=== PATIENT | male | born 1950 | race Caucasian/White ===

== ENCOUNTER → 2018-01-06 07:01 | Outpatient (CLI) | payer OTHER, SELFPAY ==
[2018-01-06 08:11] LABS: Add Manual Diff / Slide Review NO; Eosinophils Percent Auto 3.6 % (2-4); Hematocrit 43.6 % (41-53); Hemoglobin 14.7 g/dL (13.5-17.5); Lymphocytes Percent Auto 37.5 % (25-40); Mean Corpuscular HGB Conc 33.6 % (30-36); Mean Corpuscular Volume 92.3 fL (80-100); Monocytes Percent Auto 9.8 % (3-14); Neutrophils Absolute Auto 2700 /uL (3000-5900); Neutrophils Percent Auto 48.1 % (50-75); Platelet Count 251 X10^3/uL (150-400); Red Blood Cell Count 4.72 X10^6/uL (4.5-5.9); Red Cell Distribution Width 13.1 % (11.6-14.8); White Blood Cell Count 5.7 X10^3/uL (4.5-11.0)
[2018-01-06 08:20] LABS: Alanine Aminotransferase 29 IU/L (21-72); Albumin 4.2 g/dL (3.5-5.0); Albumin Globulin Ratio 1.5 (1.0-2.8); Alkaline Phosphatase 54 U/L (38-126); Aspartate Aminotransferase 25 IU/L (17-59); BUN Creatinine Ratio 13.3 (6-22); Bilirubin Total 1.4 mg/dL (0.2-1.3); Blood Urea Nitrogen 16 mg/dL (9-20); Calcium 9.4 mg/dL (8.4-10.2); Carbon Dioxide 32 mmol/L (22-32); Chloride 101 mmol/L (98-107); Cholesterol 193 mg/dL (140-199); Estimated Glomerular Filt Rate > 60.0 mL/min (>60); Globulin 2.8 g/dL (1.7-4.1); Glucose 99 mg/dL (80-110); HDL Cholesterol 74 mg/dL (40-60); HEMOLYSIS < 15 (0-50); LDL Cholesterol Calculated 108 mg/dL (<100); Potassium 4.3 mmol/L (3.4-5.1); Sodium 140 mmol/L (137-145); Triglycerides 54 mg/dL (35-150)
[2018-01-06 08:47] LABS: Thyroid Stimulating Hormone 3.41 uIU/mL (0.47-4.68)
[2018-01-06 09:08] LABS: Hep C Virus Ab w/Reflex Quant NEGATIVE s/c (NEGATIVE)
[2018-01-06 13:43] LABS: Prostate Specific Antigen Scrn 0.917 ng/mL (0.1-4.0)
[2018-01-09 15:05] LABS: 1 25 Dihydroxy Vitamin D 52 pg/mL (18-72)
== END ==
PROVIDERS: PCP Internal Medicine; Visit Provider Internal Medicine
DX: Z00.00 Encounter for general adult medical examination without abnormal findings (principal)
CPT/HCPCS: 36415; 80053; 80061; 82652; 84153; 84443; 85025; 86803; G0103

== ENCOUNTER → 2018-12-01 08:58 | Outpatient (CLI) | payer OTHER, SELFPAY ==
--- NOTE | 2018-12-01 | DI.US.S_ITS ---
PROCEDURE: US ARTERIAL DUPLEX LE BI INDICATIONS: PERIPHERAL VASCULAR DISEASE TECHNIQUE: Color and pulse Doppler interrogation was performed of both lower extremity arterial systems, with image documentation. COMPARISON: None. FINDINGS: Right lower extremity: Common femoral artery: 107 cm/sec, with triphasic flow. Deep femoral artery: 79 cm/sec, with triphasic flow. Proximal superficial femoral artery: 92 cm/sec, with triphasic flow. Mid superficial femoral artery: 98 cm/sec, with triphasic flow. Distal superficial femoral artery: 66 cm/sec, with triphasic flow. Popliteal artery: 85 cm/sec, with triphasic flow. Posterior tibial artery: 82 cm/sec, with triphasic flow. Anterior tibial artery/dorsalis pedis: 53 cm/sec, with triphasic flow. Andrade-scale imaging description: Mild atheromatous plaque. No hemodynamically significant stenosis. Left lower extremity: Common femoral artery: 93 cm/sec, with triphasic flow. Deep femoral artery: 60 cm/sec, with triphasic flow. Proximal superficial femoral artery: 78 cm/sec, with triphasic flow. Mid superficial femoral artery: 86 cm/sec, with triphasic flow. Distal superficial femoral artery: 85 cm/sec, with triphasic flow. Popliteal artery: 46 cm/sec, with triphasic flow. Posterior tibial artery: 75 cm/sec, with triphasic flow. Anterior tibial artery/dorsalis pedis: 41 cm/sec, with triphasic flow. Andrade-scale imaging description: Mild atheromatous plaque without hemodynamically significant stenosis. IMPRESSION: 1. No hemodynamically significant stenosis of the bilateral lower extremities. Dictated by: Cassandra Gutierrez M.D. on 12/01/2018 at 15:24 Approved by: Cassandra Gutierrez M.D. on 12/01/2018 at 15:37
== END ==
PROVIDERS: PCP Internal Medicine; Visit Provider Internal Medicine
DX: I73.9 Peripheral vascular disease, unspecified (principal)
CPT/HCPCS: 93925

== ENCOUNTER → 2019-03-23 07:35 | Outpatient (CLI) | payer OTHER, SELFPAY ==
[2019-03-23 08:57] LABS: Add Manual Diff / Slide Review NO; Basophils Absolute Auto 0 /uL (0-100); Basophils Percent Auto 0.5 % (0-2); Eosinophils Absolute Auto 200 /uL (0-450); Eosinophils Percent Auto 2.3 % (2-4); Hematocrit 42.9 % (41-53); Hemoglobin 14.7 g/dL (13.5-17.5); Lymphocytes Absolute Auto 1100 /uL (1100-4500); Lymphocytes Percent Auto 14.4 % (25-40); Mean Corpuscular HGB Conc 34.3 % (30-36); Mean Corpuscular Hemoglobin 31.4 PG (26-34); Mean Corpuscular Volume 91.4 fL (80-100); Monocytes Absolute Auto 500 /uL (0-900); Monocytes Percent Auto 7.2 % (3-14); Neutrophils Absolute Auto 5700 /uL (1500-7000); Neutrophils Percent Auto 75.6 % (50-75); Platelet Count 239 X10^3/uL (150-400); Red Blood Cell Count 4.69 X10^6/uL (4.5-5.9); Red Cell Distribution Width 12.8 % (11.6-14.8); White Blood Cell Count 7.6 X10^3/uL (4.5-11.0)
[2019-03-23 08:59] LABS: Alanine Aminotransferase 22 IU/L (<50); Albumin 4.4 g/dL (3.5-5.0); Albumin Globulin Ratio 1.6 (1.0-2.8); Alkaline Phosphatase 60 U/L (38-126); Aspartate Aminotransferase 28 IU/L (17-59); BUN Creatinine Ratio 14.6 (6-22); Bilirubin Total 2.1 mg/dL (0.2-1.3); Blood Urea Nitrogen 19 mg/dL (9-20); Calcium 9.2 mg/dL (8.4-10.2); Carbon Dioxide 31 mmol/L (22-32); Chloride 99 mmol/L (98-107); Cholesterol 198 mg/dL (140-199); Estimated Glomerular Filt Rate 54.6 mL/min (>60); Globulin 2.8 g/dL (1.7-4.1); Glucose 112 mg/dL (80-110); HDL Cholesterol 62 mg/dL (40-60); HEMOLYSIS < 15 (0-50); LDL Cholesterol Calculated 122 mg/dL (<100); Potassium 4.4 mmol/L (3.4-5.1); Sodium 138 mmol/L (137-145); Total Protein 7.2 g/dL (6.3-8.2); Triglycerides 72 mg/dL (35-150)
[2019-03-23 09:28] LABS: Prostate Specific Antigen Scrn 0.934 ng/mL (0.1-4.0)
[2019-03-23 14:26] LABS: Vitamin D 25 Hydroxy (D3) 31.8 ng/mL (30.0-100.0)
== END ==
PROVIDERS: PCP Internal Medicine; Visit Provider Internal Medicine
DX: I73.9 Peripheral vascular disease, unspecified (principal); M15.0 Primary generalized (osteo)arthritis; E55.9 Vitamin D deficiency, unspecified; N40.1 Benign prostatic hyperplasia with lower urinary tract symptoms; Z12.5 Encounter for screening for malignant neoplasm of prostate
CPT/HCPCS: 36415; 80053; 80061; 82306; 85025; G0103

== ENCOUNTER → 2019-04-10 07:53 | Outpatient (CLI) | payer OTHER, SELFPAY ==
--- NOTE | 2019-04-10 | DI.US.S_ITS ---
PROCEDURE: US ABDOMEN COMPLETE INDICATIONS: UNSPECIFIED JAUNDICE TECHNIQUE: Real-time scanning was performed of the abdominal and retroperitoneal organs, with image documentation. COMPARISON: None. FINDINGS: Liver: Liver is normal in size and homogeneous in echotexture except for presence of 2 cysts located within the right and left hepatic lobes respectively. On the left the cyst measures 7 x 7 x 11 mm and on the right the cyst near the dome measures 6 x 5 x 6 mm.. Gallbladder: Normal. Biliary ducts: Intrahepatic bile ducts are non-dilated. Extrahepatic bile duct caliber measures 7.0 mm. Normal is 6-7 mm or less in diameter, or 10 mm or less post-cholecystectomy. Pancreas: Visualized portions of the pancreas are sonographically normal. Spleen: Spleen is normal in size and homogeneous in echotexture. Kidneys: Kidneys are normal in size and echotexture. Right kidney measures 10.7 cm long; left kidney measures 10.6 cm long. No hydronephrosis or nephrolithiasis. No solid masses. Aorta: Visualized aorta is normal in caliber at less than 3 cm. Iliacs: Proximal common iliac arteries are normal in caliber at less than 2.5 cm. IVC: Intrahepatic inferior vena cava is patent. Miscellaneous: No free abdominal fluid. IMPRESSION: Source of abnormal liver function tests is not found. Incidental note made of 2 small cysts within the liver. No biliary distention is found. Dictated by: Isaak So M.D. on 04/10/2019 at 12:58 Approved by: Isaak So M.D. on 04/10/2019 at 13:00
[2019-04-10 09:30] LABS: Add Manual Diff / Slide Review NO; Basophils Absolute Auto 0 /uL (0-100); Basophils Percent Auto 0.5 % (0-2); Eosinophils Absolute Auto 300 /uL (0-450); Eosinophils Percent Auto 4.5 % (2-4); Hematocrit 43.4 % (41-53); Hemoglobin 14.8 g/dL (13.5-17.5); Lymphocytes Absolute Auto 2700 /uL (1100-4500); Lymphocytes Percent Auto 42.6 % (25-40); Mean Corpuscular HGB Conc 34.1 % (30-36); Mean Corpuscular Hemoglobin 31.5 PG (26-34); Mean Corpuscular Volume 92.2 fL (80-100); Monocytes Absolute Auto 500 /uL (0-900); Monocytes Percent Auto 8.4 % (3-14); Neutrophils Absolute Auto 2800 /uL (1500-7000); Platelet Count 242 X10^3/uL (150-400); Red Blood Cell Count 4.71 X10^6/uL (4.5-5.9); Red Cell Distribution Width 13.3 % (11.6-14.8); White Blood Cell Count 6.3 X10^3/uL (4.5-11.0)
[2019-04-10 09:40] LABS: Alanine Aminotransferase 22 IU/L (<50); Albumin 4.3 g/dL (3.5-5.0); Albumin Globulin Ratio 1.5 (1.0-2.8); Alkaline Phosphatase 53 U/L (38-126); Aspartate Aminotransferase 30 IU/L (17-59); BUN Creatinine Ratio 16.9 (6-22); Bilirubin Total 1.3 mg/dL (0.2-1.3); Bilirubin Unconjugated 1.2 mg/dL (0.0-1.1); Blood Urea Nitrogen 22 mg/dL (9-20); Calcium 9.3 mg/dL (8.4-10.2); Carbon Dioxide 33 mmol/L (22-32); Chloride 103 mmol/L (98-107); Cholesterol 209 mg/dL (140-199); Estimated Glomerular Filt Rate 54.6 mL/min (>60); Globulin 2.8 g/dL (1.7-4.1); Glucose 98 mg/dL (80-110); HDL Cholesterol 66 mg/dL (40-60); HEMOLYSIS < 15 (0-50); LDL Cholesterol Calculated 133 mg/dL (<100); Potassium 4.6 mmol/L (3.4-5.1); Sodium 141 mmol/L (137-145); Total Protein 7.1 g/dL (6.3-8.2); Triglycerides 50 mg/dL (35-150)
[2019-04-10 10:10] LABS: Prostate Specific Antigen Scrn 1.02 ng/mL (0.1-4.0)
[2019-04-10 10:47] LABS: Vitamin D 25 Hydroxy (D3) 36.7 ng/mL (30.0-100.0)
== END ==
PROVIDERS: PCP Internal Medicine; Visit Provider Internal Medicine
DX: R17 Unspecified jaundice (principal); I73.9 Peripheral vascular disease, unspecified; M15.0 Primary generalized (osteo)arthritis; E55.9 Vitamin D deficiency, unspecified; Z12.5 Encounter for screening for malignant neoplasm of prostate; N40.1 Benign prostatic hyperplasia with lower urinary tract symptoms
CPT/HCPCS: 36415; 76700; 80053; 80061; 80076; 82306; 85025; G0103

== ENCOUNTER → 2019-07-06 10:04 | Outpatient (CLI) | payer OTHER, SELFPAY ==
--- NOTE | 2019-07-06 | DI.RAD.S_ITS ---
PROCEDURE: XR CHEST 2V INDICATIONS: COUGH TECHNIQUE: 2 views of the chest were acquired. COMPARISON: None. FINDINGS: Surgical changes and devices: None. Lungs and pleura: Lungs are clear. No pleural effusions or pneumothorax. Mediastinum: Mediastinal contours are normal. Heart size is normal. Bones and chest wall: No suspicious bony abnormalities. Soft tissues appear unremarkable. IMPRESSION: No acute cardiopulmonary disease. Dictated by: Michelle Christiansen M.D. on 07/06/2019 at 10:36 Approved by: Michelle Christiansen M.D. on 07/06/2019 at 10:37
== END ==
PROVIDERS: PCP Internal Medicine; Referring Provider Student in an Organized Health Care Education/Training Program; Visit Provider Student in an Organized Health Care Education/Training Program
DX: R05 Cough (principal)
CPT/HCPCS: 71046

== ENCOUNTER → 2019-10-08 13:28 | Outpatient (CLI) | payer OTHER, SELFPAY ==
--- NOTE | 2019-10-08 | DI.RAD.S_ITS ---
PROCEDURE: XR CHEST 2V INDICATIONS: cough TECHNIQUE: 2 views of the chest were acquired. COMPARISON: [facility], CR, XR CHEST 2V, 07/06/2019, 10:05. FINDINGS: Surgical changes and devices: None. Lungs and pleura: Lungs are clear. No pleural effusions or pneumothorax. Mediastinum: Mediastinal contours are normal. Heart size is normal. Bones and chest wall: No suspicious bony abnormalities. Soft tissues appear unremarkable. IMPRESSION: Normal for age, source of current cough symptoms is not seen. Dictated by: Isaak So M.D. on 10/08/2019 at 14:24 Approved by: Isaak So M.D. on 10/08/2019 at 14:25
[2019-10-08 14:54] LABS: Add Manual Diff / Slide Review NO; Basophils Absolute Auto 0 /uL (0-100); Basophils Percent Auto 0.6 % (0-2); Eosinophils Absolute Auto 200 /uL (0-450); Eosinophils Percent Auto 2.5 % (2-4); Hematocrit 40.6 % (41-53); Lymphocytes Absolute Auto 2300 /uL (1100-4500); Lymphocytes Percent Auto 30.8 % (25-40); Mean Corpuscular HGB Conc 34.4 % (30-36); Mean Corpuscular Hemoglobin 31.7 PG (26-34); Mean Corpuscular Volume 92.2 fL (80-100); Monocytes Absolute Auto 600 /uL (0-900); Monocytes Percent Auto 8.5 % (3-14); Neutrophils Absolute Auto 4300 /uL (1500-7000); Neutrophils Percent Auto 57.6 % (50-75); Platelet Count 239 X10^3/uL (150-400); Red Cell Distribution Width 13.2 % (11.6-14.8); White Blood Cell Count 7.5 X10^3/uL (4.5-11.0)
[2019-10-08 15:29] LABS: Erythrocyte Sedimentation Rate 4 MM/HR (0-15)
== END ==
PROVIDERS: PCP Internal Medicine; Referring Provider Internal Medicine; Visit Provider Internal Medicine
DX: R05 Cough (principal)
CPT/HCPCS: 36415; 71046; 85025; 85651

== ENCOUNTER → 2020-02-28 08:20 | Outpatient (CLI) | payer OTHER, SELFPAY ==
[2020-02-28 08:51] LABS: Add Manual Diff / Slide Review NO; Basophils Absolute Auto 0 /uL (0-100); Basophils Percent Auto 0.9 % (0-2); Eosinophils Absolute Auto 300 /uL (0-450); Eosinophils Percent Auto 5.2 % (2-4); Hematocrit 43.3 % (41-53); Hemoglobin 14.8 g/dL (13.5-17.5); Lymphocytes Absolute Auto 2300 /uL (1100-4500); Lymphocytes Percent Auto 40.8 % (25-40); Mean Corpuscular HGB Conc 34.3 % (30-36); Mean Corpuscular Hemoglobin 31.7 PG (26-34); Mean Corpuscular Volume 92.5 fL (80-100); Monocytes Absolute Auto 800 /uL (0-900); Monocytes Percent Auto 13.7 % (3-14); Neutrophils Absolute Auto 2200 /uL (1500-7000); Neutrophils Percent Auto 39.4 % (50-75); Platelet Count 235 X10^3/uL (150-400); Red Blood Cell Count 4.67 X10^6/uL (4.5-5.9); Red Cell Distribution Width 13.3 % (11.6-14.8); White Blood Cell Count 5.6 X10^3/uL (4.5-11.0)
[2020-02-28 09:38] LABS: Sodium 138 mmol/L (137-145)
[2020-02-28 09:39] LABS: Alanine Aminotransferase 28 IU/L (<50); Albumin 4.1 g/dL (3.5-5.0); Albumin Globulin Ratio 1.4 (1.0-2.8); Alkaline Phosphatase 67 U/L (38-126); Aspartate Aminotransferase 31 IU/L (17-59); BUN Creatinine Ratio 15.4 (6-22); Bilirubin Total 1.2 mg/dL (0.2-1.3); Blood Urea Nitrogen 19 mg/dL (9-20); Calcium 9.5 mg/dL (8.4-10.2); Carbon Dioxide 30 mmol/L (22-32); Chloride 103 mmol/L (98-107); Cholesterol 186 mg/dL (140-199); Globulin 2.9 g/dL (1.7-4.1); Glucose 98 mg/dL (80-110); HDL Cholesterol 77 mg/dL (40-60); HEMOLYSIS < 15 (0-50); LDL Cholesterol Calculated 96 mg/dL (<100); Potassium 5.2 mmol/L (3.4-5.1); Triglycerides 67 mg/dL (35-150)
[2020-02-28 10:06] LABS: Prostate Specific Antigen Scrn 1.03 ng/mL (0.1-4.0)
== END ==
PROVIDERS: PCP Family Medicine; Referring Provider Family Medicine; Visit Provider Family Medicine
DX: N18.31 Chronic kidney disease, stage 3a (principal); N40.1 Benign prostatic hyperplasia with lower urinary tract symptoms; E87.5 Hyperkalemia; E78.00 Pure hypercholesterolemia, unspecified
CPT/HCPCS: 36415; 80053; 80061; 85025; G0103

== ENCOUNTER → 2020-04-30 10:51 | Outpatient (CLI) | payer OTHER, SELFPAY ==
--- NOTE | 2020-04-30 10:52 | DI.RAD.S_ITS ---
PROCEDURE: XR WRIST LT MIN 3V INDICATIONS: pain TECHNIQUE: 3 views of the wrist were acquired. COMPARISON: None. FINDINGS: Bones: No fractures or dislocations. No suspicious bony lesions. Soft tissues: No suspicious soft tissue calcifications. IMPRESSION: 1. No acute radiographic findings. If there is continued pain, followup exam or additional imaging such as MRI or CT could be performed for further assessment. Dictated by: Cassandra Gutierrez M.D. on 04/30/2020 at 13:45 Approved by: Cassandra Gutierrez M.D. on 04/30/2020 at 13:46
== END ==
PROVIDERS: PCP Family Medicine; Referring Provider Family Medicine; Visit Provider Family Medicine
DX: M25.532 Pain in left wrist (principal)
CPT/HCPCS: 73110

== ENCOUNTER 2020-07-22 11:30 | Outpatient (RCR) | payer OTHER, SELFPAY ==
--- NOTE | 2020-06-09 16:09 | ST.OPIE ---
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 Arndt, ENT Setting Setting Outpatient Care Patient History General Information Pt was seen for voice evaluation at the referral of Dr. Arndt. According to the pt he feels his voice is hoarse and it doesn't sound like his voice. He noted that his voice is weaker and will become more hoarse as the day goes on. He has also had a chronic cough, but feels that this has improved. He reported that he does not drink water. 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 Oral-Motor Eval Completed No: Informal observation indicated structures and functio to be WFL - Laryngeal Performance S/Z Ratio S/Z Ratio .74 Functional for Speech Yes Reduced Laryngeal Function Relative to No Respiration Voice Handicap Index Function Subtotal 9 Physical Subtotal 17 Emotional Subtotal 3 Total Score 29 Severity Mild (0-30) CAPE-V Overall Severity 27 Roughness 48 Breathiness 21 Strain 5 Pitch 5 Loudness 6 Normal Resonance? Yes Additional Features Glottal Landa Maximum Phonation Time MPT Norms: Women (15-25) Men (25-35) Loudness (50-60 dB); Speaking Rate: Oral Reading of Sentences (190 Words Per Minute); Oral Reading of Paragraphs (160-170 WPM); Speaking Rate in Conversation (150-250 WPM) Maximum Phonation Time 10.7 Maximum Phonation Time Reduced Jitter/Shimmer Norms: Jitter (Less than or equal to 1.040% - Frequency) Norms: Shimmer (Less than or equal to 3.810% - Amplitude) Jitter 7.3 Shimmer 16.9 Pitch Saco Pitch Saco Pitch Breaks,Cessation of Voicing Muscle Tension Assessment Muscle Tension Assessment None Breath Support Breath Support At Rest Abdominal Breath Support Sustained Phonation Mixed Breath Support Conversation Abdominal Speaks on Room Air Yes Postural Alignment Stance Balanced Shoulders Symmetrical Voice Pitch Range Norms: Women (100-300 Hz) Men (70-250 Hz) Fundamental Frequency Norms: Women (Mean: 225 Hz; Range: 155-334 Hz) Men ( Mean: 128 Hz; Range: 85-196 Hz) Voice Pitch Normal Voice Loudness Normal Voice Phonatory-based Quality Hoarse,Glottal Landa Fundamental Frequency 162 Hz Paradoxical Vocal Fold Movement No Indications Resonance Nasal Resonance Normal Oral Resonance Normal Therapeutic Techniques Other Tactics Vocal adduction exercises Increase H2O consumption Findings Findings Mild-Moderate Impairment Voice/Resonance Assessment Assessment Wei Cr presented with a hoarse voice with significant glottal landa. He described his voice as hoarse, not strong, gravely at times. Pt reported that he does not drink much water as he doesn't get thirsty. He drinks coffee in the morning, beer at times and in the summer iced tea. Pt reported that he has a medical history of asthma as a child, allergies. He is taking a prescribed antihistamine for eczema. Upon evaluation, it was determined that the jitter and shimmer values were high and his MPT was short. S/z was normal, pitch was normal. Voice therapy is recommended. Dr. Arndt reported possible bowing. Given the pt's age, it is likely that bowing has started to occur. Vocal adduction exercises are recommended. Increased H2O is also recommended to increase the moisture of the mucosal lining of the mouth and pharynx/larynx. This was discussed at length with te pt . Vocal adduction exercises were modeled and written literature was provided. Prognosis Rehabilitation Potential Good - Recommendations Treatment Recommended Yes Treatment Frequency/Duration every other week Therapy Recommendations Vocal therapy Short Term Goals 1) The pt will incorporate vocal adduction exercises into daily routine, practicing exercises a minimum of 5x/day for ~ 5-10 minutes.. 2) Pt will increase intake of H2O to 4-6 glasses per day to increase overall hydration as well as laryngopharyngeal hydration. 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
--- NOTE | 2020-06-09 16:11 | ST.OPPOC ---
Physical, Occupational & Speech Therapy At [facility] Visit Care Team Role Provider Type Josh Becerra DO Primary Care Provider Physician Address: [address] [place] [address], [id number] Kvng Arndt MD Attending Provider Physician Referring Provider Address: [address] [place] [address], [id number] Speech Pathology Plan of Care General Information Pt was seen for voice evaluation at the referral of Dr. Arndt. According to the pt he feels his voice is hoarse and it doesn't sound like his voice. He noted that his voice is weaker and will become more hoarse as the day goes on. He has also had a chronic cough, but feels that this has improved. He reported that he does not drink water. 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 Physician Signature Date Printed Name and Credentials Clinical Instructor Signature Printed Name and Credentials
--- NOTE | 2020-06-23 14:03 | ST.OPTN ---
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 Arndt. According to the pt he feels his voice is hoarse and it doesnt sound like his voice. He noted that his voice is weaker and will become more hoarse as the day goes on. He has also had a chronic cough, but feels that this has improved. He repoted that he does not drink water. 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 2) Pt will increase intake of H2O to 4-6 glasses per day to increase overall hydration as well as laryngopharyngeal hydration. Retirement Goals Improved vocal quality Treatment Activities Pt reported that he has been performing exercises for vocal adduction daily as discussed last session. he feels that his voice sounds better and his has told him his voice sounds stronger. Assessment Patient Response to Treatment Good Impairments Identified Dysphonia Plan Amount of Therapy Recommended 1-2 Months Comment 1x/every other week Length of Session 45 Minutes Therapeutic Contents Voice Training Therapy Recommendations Continue with Current Program, Recommended Exercises/ Activities
--- NOTE | 2020-07-22 12:07 | ST.OPDS ---
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 Arndt. According to the pt he feels his voice is hoarse and it doesn't sound like his voice. He noted that his voice is weaker and will become more hoarse as the day goes on. He has also had a chronic cough, but feels that this has improved. He repoted that he does not drink water. 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 GOAL MET 2) Pt will increase intake of H2O to 4-6 glasses per day to increase overall hydration as well as laryngopharyngeal hydration. GOAL MET Alf Goals Improved vocal quality Treatment Activities Pt reported that he has been performing exercises for vocal adduction every 3-4 days. He is happy with how much more powerful his voice is. Reassessment noted Jitter now at 3.13 and Shimmer at 5.96. Significant improvement in both measures. Improvement in Voice Handicap Index as well. Assessment Patient Response to Treatment Excellent Impairments Identified Dysphonia Progress Towards Goals Excellent Progress,Goals Met, Appropriate for Discharge Assessment of Overall Progress Rehabilitated Assessment of Improvement Pt is very happy with his voice improvement. Significant improvement in vocal quality as measured. Pt will be discharged from ST> Reviewed with Patient Progress Being Made,Home Exercise Program Plan Amount of Therapy Recommended No Further Therapy Frequency of Treatment No Further Therapy Provided Patient/Caregiver Instruction Home Exercise Program Therapy Recommendations Recommended Exercises/ Activities,Discharge from Speech Therapy
== END 2020-07-25 08:55 | disposition home or self-care (01) ==
LOC: SP 11:30
PROVIDERS: PCP Family Medicine; Referring Provider Otolaryngology; Visit Provider Otolaryngology
DX: R49.0 Dysphonia (principal)
CPT/HCPCS: 92507; 92520; 92524

== ENCOUNTER 2020-11-13 11:21 | Emergency (ER) | payer OTHER, SELFPAY ==
[2020-11-13] VITALS (8 sets, daily range): BP systolic 114–129; BP diastolic 68–78; PULSE 45–68; RESP 13–23; TEMP 36.6; O2SAT 97–99; BMI 22.9
--- NOTE | 2020-11-13 11:56 | DI.RAD.S_ITS ---
PROCEDURE: XR CHEST 2V INDICATIONS: chest pain TECHNIQUE: 2 views of the chest were acquired. COMPARISON: [facility], CR, XR CHEST 2V, 10/08/2019, 13:38. FINDINGS: Surgical changes and devices: None. Lungs and pleura: Lungs are clear. No pleural effusions or pneumothorax. Mediastinum: Mediastinal contours are normal. Heart size is normal. Bones and chest wall: No suspicious bony abnormalities. Soft tissues appear unremarkable. IMPRESSION: No acute pulmonary process. Dictated by: Janee Munoz M.D. on 11/13/2020 at 12:23 Approved by: Janee Munoz M.D. on 11/13/2020 at 12:24
[2020-11-13 12:03] LABS: Add Manual Diff / Slide Review NO; Basophils Absolute Auto 100 /uL (0-100); Eosinophils Absolute Auto 300 /uL (0-450); Eosinophils Percent Auto 4.7 % (2-4); Hematocrit 45.3 % (41-53); Hemoglobin 15.3 g/dL (13.5-17.5); Lymphocytes Absolute Auto 2200 /uL (1100-4500); Lymphocytes Percent Auto 36.2 % (25-40); Mean Corpuscular HGB Conc 33.7 % (30-36); Mean Corpuscular Hemoglobin 31.4 PG (26-34); Monocytes Absolute Auto 700 /uL (0-900); Monocytes Percent Auto 11.4 % (3-14); Neutrophils Absolute Auto 2900 /uL (1500-7000); Neutrophils Percent Auto 46.7 % (50-75); Platelet Count 256 X10^3/uL (150-400); Red Blood Cell Count 4.88 X10^6/uL (4.5-5.9); White Blood Cell Count 6.1 X10^3/uL (4.5-11.0)
[2020-11-13 12:07] LABS: Alanine Aminotransferase 27 IU/L (<50); Albumin 4.4 g/dL (3.5-5.0); Albumin Globulin Ratio 1.4 (1.0-2.8); Alkaline Phosphatase 59 U/L (38-126); Aspartate Aminotransferase 39 IU/L (17-59); BUN Creatinine Ratio 21.3 (6-22); Bilirubin Total 1.3 mg/dL (0.2-1.3); Blood Urea Nitrogen 23 mg/dL (9-20); Calcium 9.4 mg/dL (8.4-10.2); Carbon Dioxide 24 mmol/L (22-32); Chloride 109 mmol/L (98-107); Creatine Kinase 163 U/L (55-170); Estimated Glomerular Filt Rate > 60.0 mL/min (>60); Globulin 3.1 g/dL (1.7-4.1); Glucose 101 mg/dL (80-110); HEMOLYSIS 30 (0-50); Lipase 57 U/L (23-300); Potassium 4.5 mmol/L (3.4-5.1); Sodium 139 mmol/L (137-145); Total Protein 7.5 g/dL (6.3-8.2)
[2020-11-13 12:19] LABS: Troponin I < 0.012 ng/mL (0.01-0.034)
[2020-11-13 12:22] LABS: CKMB % Relative Index 4.7 % (1.5-5.0); Creatine Kinase MB 7.71 ng/mL (<2.37)
--- NOTE | 2020-11-13 14:15 | PC.NURSE ---
Patient reports not feeling well over last 5-6 months. Increase fatigue and low energy. Patient was mowing his yard this morning, felt he had to sit down several times, dizziness and some diaphoresis. patient has been experiencing more epigastrium reflux discomfort over last several months.
--- NOTE | 2020-11-13 14:20 | ED_ITS ---
HPI - Chest Pain General Chief Complaint: Weakness Stated Complaint: SOB/fatigue/sent by triage nurse Time Seen by Provider: 11/13/20 14:08 Source: patient Mode of arrival: Ambulatory Limitations: no limitations History of Present Illness HPI narrative: Patient is a 70-year-old male who presents today with epigastric pain sweating dizziness lightheadedness while mowing the lawn. He says that he has a Terrace lawn he can typically mow the lawn without any difficulty, however today he got real dizzy lightheaded weak and has some mild epigastric pain. He went into the house. He has had these episodes off and on for last couple of weeks today seemed to be little bit worse. No prior history of coronary artery disease. It is quite hot outside today but he was mowing the lawn at around 9:00 a.m. before he said it was too hot. He now feels completely fine. No further episodes of epigastric pain no dizziness lightheadedness or diaphoresis. MD complaint: chest pain Duration: now resolved Related Data Home Medications Medication Instructions Recorded Confirmed doxazosin [Cardura] 1 mg PO QDAY #0 08/23/12 05/07/20 Previous Rx's Medication Instructions Recorded acyclovir [Zovirax] 200 mg PO TIDP #180 cap 02/06/13 Allergies Allergy/AdvReac Type Severity Reaction Status Date / Time No Known Drug Allergies Allergy Verified 11/13/20 11:27 Review of Systems Review of Systems ROS Unobtainable: All systems reviewed & are unremarkable except as noted in HPI and below Constitutional Constitutional: Denies chills, Reports excessive sweating, Denies fever(s), Denies lethargy and Reports weakness Eyes Eyes: Denies change in vision, Denies eye discharge, Denies irritation and Denies loss of vision Cardiovascular Cardiovascular: Reports chest pain, Denies syncope, Denies edema, Denies leg edema, Denies dyspnea and Reports dyspnea on exertion Respiratory Respiratory: Denies cough, Denies dyspnea, Reports dyspnea on exertion and Denies wheezing Gastrointestinal Gastrointestinal: Denies abdominal pain, Denies change in bowel habits, Denies diarrhea, Denies nausea and Denies vomiting Neurologic Neurologic: Denies syncope, Denies loss of vision and Reports weakness Endocrine Endocrine: Reports excessive sweating Allergic/Immunologic Allergic/Immunologic: Denies wheezing Patient History Medical History Acute pain of left wrist Allergies BPH loc w urin obs/LUTS Chronic cough Chronic kidney disease (CKD) stage G3a/A1, moderately decreased glomerular filtration rate (GFR) between 45-59 mL/min/1.73 square meter and albuminuria c reatinine ratio less than 30 mg/g Low back pain with sciatica Upper extremity somatic dysfunction Family History Father Hypertension Hyperlipidemia Heart disease Stroke Mother Cancer Social History Smoking Status: Never smoker alcohol intake: current substance use type: does not use Smoking Status: Never smoker alcohol intake frequency: 0-2 drinks per day Substance Use Type: does not use Exam Initial Vital Signs Initial Vital Signs: Vital Signs Temperature 97.8 F 11/13/20 11:25 Pulse Rate 68 11/13/20 11:25 Respiratory Rate 14 11/13/20 11:25 Blood Pressure 117/78 11/13/20 11:25 Pulse Oximetry 98 11/13/20 11:25 GENERAL: Well-appearing 70-year-old male appears very fit and in no acute distress. HEENT: Head atraumatic,EOMI, pupils reactive, face symmetric, moist mucous membranes CARDIOVASCULAR: Regular rate and rhythm without murmurs, rubs or gallops. RESPIRATORY: Breath sounds equal bilaterally, no wheezes rales or rhonchi. ABDOMEN: Soft, nontender. Normoactive bowel sounds all 4 quadrants. No guarding or rebound. EXTREMITIES: Normal range of motion, no clubbing or edema. Neurovascularly intact NEUROLOGICAL: Alert and oriented x4.Normal gait and speech. Cranial nerves II through XII grossly intact. SKIN: Warm, dry, no laceration, no petechiae, no rashes or lesions. Scores HEART Score Heart Score history: Moderately Suspicious Heart Score EKG: Normal Heart Score Age: > or = 65 years old Heart Score risk factors: No known risk factors Heart Score troponin: < or = to normal limit Heart Score Total: 3 Course Orders Ordered: ED Orders 11/13/20 11:30 Complete Blood Count AUTO DIFF Stat Comprehensive Metabolic Panel Stat Lipase Stat Troponin & CK Cardiac Panel Stat 11/13/20 11:56 XR chest 2V Stat 11/13/20 14:18 NT-proBNP (BNP-Adult 18+) Stat Trop I [Troponin I] Stat 11/13/20 14:24 EKG-12 Lead Stat Vital Signs Vital signs: Vital Signs - 8 hr 11/13/20 14:06 11/13/20 14:30 11/13/20 15:00 Pulse Rate 45 L 47 L 47 L Respiratory Rate 15 23 21 Blood Pressure Pulse Oximetry 99 98 97 11/13/20 15:30 11/13/20 15:51 11/13/20 16:00 Pulse Rate 46 L 51 L 48 L Respiratory Rate 13 19 18 Blood Pressure 129/76 114/70 Pulse Oximetry 99 98 98 11/13/20 16:30 Pulse Rate 51 L Respiratory Rate 17 Blood Pressure 118/68 Pulse Oximetry 98 MDM - Chest Pain Lab Data Attestation: I reviewed the patient's lab results. Result diagrams: 11/13/20 11:30 11/13/20 11:30 Labs: Lab Results 11/13/20 11/13/20 11/13/20 Range/Units 11:30 11:30 14:18 WBC 6.1 (4.5-11.0) X10^3/uL RBC 4.88 (4.5-5.9) X10^6/uL Hgb 15.3 (13.5-17.5) g/dL Hct 45.3 (41-53) % MCV 93.0 (80-100) fL MCH 31.4 (26-34) PG MCHC 33.7 (30-36) % RDW 13.0 (11.6-14.8) % Plt Count 256 (150-400) X10^3/uL Neut % (Auto) 46.7 L (50-75) % Lymph % (Auto) 36.2 (25-40) % Vermilion % (Auto) 11.4 (3-14) % Eos % (Auto) 4.7 H (2-4) % Baso % (Auto) 1.0 (0-2) % Neut # (Auto) 2900 (7440-8370) /uL Lymph # (Auto) 2200 (2426-1246) /uL [place] # (Auto) 700 (0-900) /uL Eos # (Auto) 300 (0-450) /uL Baso # (Auto) 100 (0-100) /uL Sodium 139 (137-145) mmol/L Potassium 4.5 (3.4-5.1) mmol/L Chloride 109 H (98-107) mmol/L Carbon Dioxide 24 (22-32) mmol/L BUN 23 H (9-20) mg/dL Creatinine 1.08 (0.66-1.25) mg/dL Estimated GFR > 60.0 (>60) mL/min BUN/Creatinine Ratio 21.3 (6-22) Glucose 101 (80-110) mg/dL Calcium 9.4 (8.4-10.2) mg/dL Total Bilirubin 1.3 (0.2-1.3) mg/dL AST 39 (17-59) IU/L ALT 27 (<50) IU/L Alkaline Phosphatase 59 (38-126) U/L Total Creatine Kinase 163 (55-170) U/L CK-MB (CK-2) 7.71 H (<2.37) ng/mL CK-MB (CK-2) Rel Index 4.7 (1.5-5.0) % Troponin I < 0.012 < 0.012 (0.01-0.034) ng/mL NT-Pro-B Natriuret Pep (<125) pg/mL Total Protein 7.5 (6.3-8.2) g/dL Albumin 4.4 (3.5-5.0) g/dL Globulin 3.1 (1.7-4.1) g/dL Albumin/Globulin Ratio 1.4 (1.0-2.8) Lipase 57 (23-300) U/L 11/13/20 Range/Units 14:18 WBC (4.5-11.0) X10^3/uL RBC (4.5-5.9) X10^6/uL Hgb (13.5-17.5) g/dL Hct (41-53) % MCV (80-100) fL MCH (26-34) PG MCHC (30-36) % RDW (11.6-14.8) % Plt Count (150-400) X10^3/uL Neut % (Auto) (50-75) % Lymph % (Auto) (25-40) % Vermilion % (Auto) (3-14) % Eos % (Auto) (2-4) % Baso % (Auto) (0-2) % Neut # (Auto) (5740-0118) /uL Lymph # (Auto) (9256-3245) /uL Vermilion # (Auto) (0-900) /uL Eos # (Auto) (0-450) /uL Baso # (Auto) (0-100) /uL Sodium (137-145) mmol/L Potassium (3.4-5.1) mmol/L Chloride (98-107) mmol/L Carbon Dioxide (22-32) mmol/L BUN (9-20) mg/dL Creatinine (0.66-1.25) mg/dL Estimated GFR (>60) mL/min BUN/Creatinine Ratio (6-22) Glucose (80-110) mg/dL Calcium (8.4-10.2) mg/dL Total Bilirubin (0.2-1.3) mg/dL AST (17-59) IU/L ALT (<50) IU/L Alkaline Phosphatase (38-126) U/L Total Creatine Kinase (55-170) U/L CK-MB (CK-2) (<2.37) ng/mL CK-MB (CK-2) Rel Index (1.5-5.0) % Troponin I (0.01-0.034) ng/mL NT-Pro-B Natriuret Pep 192 H (<125) pg/mL Total Protein (6.3-8.2) g/dL Albumin (3.5-5.0) g/dL Globulin (1.7-4.1) g/dL Albumin/Globulin Ratio (1.0-2.8) Lipase (23-300) U/L Imaging Data Chest x-ray: Radiologist's Impression: PROCEDURE: XR CHEST 2V INDICATIONS: chest pain TECHNIQUE: 2 views of the chest were acquired. COMPARISON: [facility], , XR CHEST 2V, 10/08/2019, 13:38. FINDINGS: Surgical changes and devices: None. Lungs and pleura: Lungs are clear. No pleural effusions or pneumothorax. Mediastinum: Mediastinal contours are normal. Heart size is normal. Bones and chest wall: No suspicious bony abnormalities. Soft tissues appear unremarkable. IMPRESSION: No acute pulmonary process. Dictated by: Janee Munoz M.D. on 11/13/2020 at 12:23 ECG Data Attestation: I personally reviewed and interpreted this ECG as follows: Prior ECG tracings: not available for review Interpretation: EKG 1. Normal sinus Rhythm rate 68 p.r. interval 108 QRS 92 QTC 397 he actually does have some tall T-waves V3 V4. No concerning ST elevations no depressions he does have T-wave inversion noted in AVR EKG 2. Sinus rhythm rate 48 p.r. interval 143 are S [address] changes MDM Narrative Medical decision making narrative: Patient has been having symptoms off and on it sounds like for a while today maybe was a little bit worse. Now in the emergency department he feels significantly better he has 2- troponins and no changes in his EKG. Concern for acute coronary syndrome and atypical chest pain. Patient certainly does need a stress test. [id number] with [facility] who has arranged for an appointment tomorrow at 1:[address] Gabriel who will arrange for stress test. I have discussed with patient importance of following up tomorrow and getting a stress test. I have also discussed with him if he should have any new or worsening symptoms at any point he is welcome to call 911 and return to the emergency department. Both he and his have agreed and understand this. Discharge Plan Departure Patient Disposition: Home Clinical Impression: Atypical chest pain Instructions: DI for Atypical Chest Pain Activity Restrictions/Additional Instructions: *You have been diagnosed with atypical chest pain *What to do: At this time I do strongly suggest you have a cardiac stress test. I arranged for follow-up with a primary care provider tomorrow in order to schedule your stress test. In the meantime it please take it easy and if you are having any new or worsening or continuing symptoms please return to the emergency department by 911 *Continue to take medications as directed *Follow up with your primary care provider, Dr. Gabriel at 1:20 a.m. tomorrow with [facility] *Return to ER if you should have increasing dizziness, lightheadedness, sweating chest pain or any new, worsening or concerning symptoms Prescriptions: No Action doxazosin [Cardura] 1 MG tablet 1 mg PO QDAY Qty: 0 RF: 0 acyclovir [Zovirax] 200 MG capsule 200 mg PO TIDP Qty: 180 RF: 0 Referrals: Alonzo So MD [Primary Care Provider] -
[2020-11-13 14:47] LABS: Troponin I < 0.012 ng/mL (0.01-0.034)
[2020-11-13 16:09] LABS: NT-proBNP (BNP-Adult 18+) 192 pg/mL (<125)
== END 2020-11-13 16:46 | disposition home or self-care (01) ==
PROVIDERS: Emergency Provider Emergency Medicine; PCP Internal Medicine
DX: R07.89 Other chest pain (principal); R42 Dizziness and giddiness
CPT/HCPCS: 36415; 71046; 80053; 82550; 82553; 83690; 83880; 84484; 85025; 93005; 93010; 99284

== ENCOUNTER → 2020-11-18 06:59 | Outpatient (CLI) | payer OTHER, SELFPAY ==
--- NOTE | 2020-11-18 | DI.MRI.S_ITS ---
PROCEDURE: MR WRIST LT WO/W CON INDICATIONS: Ganglion, unspecified wrist TECHNIQUE: Noncontrast coronal proton density fast spin echo and T2 fast spin echo with fat saturation; coronal 3-D gradient echo, axial T1 spin echo and T2 fast spin echo with fat saturation, coronal T1 spin echo with fat saturation, sagittal T1 spin echo through the wrist. Post-contrast axial, coronal, and sagittal T1 spin echo with fat saturation through the wrist. COMPARISON: [facility], CR, XR WRIST LT MIN 3V, 04/30/2020, 10:53. FINDINGS: Image quality: Excellent. Bones and cartilage: Cystic changes are seen throughout the visualized carpal bones, which are most likely degenerative in nature rather than represent small erosions. There is cartilage loss at the triscaphe joint, 1st carpometacarpal joint, radioscaphoid joint, and the hamate-triquetrum and hamatolunate articulations. A type 2 lunate is present. Mild osseous edema and enhancement is seen within the distal ulna and the adjacent triquetrum, possibly related to acute trabecular bone injury or chronic degenerative changes or repetitive impaction. No signs of a vascular necrosis. Carpal alignment is maintained. Neutral ulnar variance is seen. Carpal ligaments: The scapholunate and lunotriquetral ligaments appear intact. Triangular fibrocartilage complex: There is a small central perforation of the central triangle fibrocartilage disc, which is most likely degenerative. Tendons and soft tissues: There is mild synovial hyperenhancement on postcontrast images, which may be normal depending on the timing of the postcontrast images. No significant joint effusion is seen. A small lobular ganglion cyst is seen volar to the 2nd carpometacarpal joint measuring approximately 0.7 x 0.3 x 0.5 cm. An additional adjacent ganglion cyst is seen extending superiorly measuring up to 0.9 x 0.3 x 0.3 cm. The extensor carpi radialis longus tendon appears mildly thickened with mildly increased signal in the 2nd compartment adjacent to the skin marker, compatible with moderate tendinosis. There is mild tendinosis of the extensor carpi radialis brevis tendon and the overlying extensor pollicis longus tendon. Moderate tendinosis is also seen in the extensor carpi ulnaris tendon without significant subluxation. The remaining extensor tendons are grossly intact. No suspicious soft tissue enhancement. The carpal tunnel structures appear normal, including the median nerve. The ulnar nerve appears normal within Guyon's canal. IMPRESSION: 1. Moderate tendinosis versus low-grade intrasubstance tear of the extensor carpi radialis longus tendon in the 2nd extensor compartment adjacent to the skin marker. 2. Mild tendinosis of the extensor carpi radialis brevis tendon and the extensor pollicis longus tendon. Moderate extensor carpi ulnaris tendinosis. 3. Mild osseous edema in the distal ulna and in the triquetrum with superimposed cystic changes is most likely related to chronic degenerative changes, but acute or subacute trabecular bone injury or chronic repetitive impaction/abutment injuries could appear similarly. There is neutral ulnar variance. 4. Small focal degenerative perforation of the central triangle fibrocartilage disc. 5. Scattered subchondral cystic changes throughout the carpal bones are favored to represent degenerative cysts rather than osseous erosions. [id number] degenerative changes are seen throughout the wrist. If there is suspicion for an inflammatory arthritis, correlation with serologies is recommended. 6. Small ganglion cysts at the volar aspect of the wrist between the 2nd carpometacarpal joint and the carpal tunnel measure up to 0.7 cm and 0.9 cm in size. No solid enhancing soft tissue mass. At [facility], we strive to produce accurate, complete, and clear reports of imaging services. To assist us in improving patient care, this report was composed using standard report templates and voice recognition software. Therefore, it may contain abnormal punctuation, misrecognitions, insertions, and/or omissions. Occasional wrong-word or sound-alike substitutions may occur. Though we review the report and make efforts to correct it, we do recommend that the report be read carefully in proper context to recognize any text inaccuracies. Dictated by: Teddy Maria M.D. on 11/18/2020 at 9:23 Approved by: Teddy Maria M.D. on 11/18/2020 at 9:46
== END ==
PROVIDERS: PCP Internal Medicine; Referring Provider Orthopaedic Surgery; Visit Provider Orthopaedic Surgery
DX: M67.432 Ganglion, left wrist (principal); M25.532 Pain in left wrist
CPT/HCPCS: 73223; A9579

== ENCOUNTER → 2021-03-24 07:38 | Outpatient (CLI) | payer OTHER, SELFPAY ==
[2021-03-24 09:37] LABS: Cholesterol 173 mg/dL (140-199); HDL Cholesterol 60 mg/dL (40-60); LDL Cholesterol Calculated 100 mg/dL (<100); Triglycerides 67 mg/dL (35-150)
[2021-03-24 09:54] LABS: Prostate Specific Antigen Scrn 1.08 ng/mL (0.1-4.0)
[2021-03-24 09:56] LABS: Thyroid Stimulating Hormone 3.02 uIU/mL (0.47-4.68)
[2021-03-25 13:49] LABS: Free T4, Direct Thyroxine 1.07 ng/dL (0.78-2.19)
== END ==
PROVIDERS: PCP Family Medicine; Referring Provider Internal Medicine Cardiovascular Disease; Visit Provider Internal Medicine Cardiovascular Disease
DX: I48.0 Paroxysmal atrial fibrillation (principal); E78.5 Hyperlipidemia, unspecified; Z12.5 Encounter for screening for malignant neoplasm of prostate
CPT/HCPCS: 36415; 80061; 84439; 84443; G0103

== ENCOUNTER 2021-09-20 08:57 | Emergency (ER) | payer OTHER, SELFPAY ==
[2021-09-20 09:10] VITALS: BP 137/62; PULSE 56; RESP 18; TEMP 36.5; O2SAT 98; BMI 23.1
--- NOTE | 2021-09-20 09:16 | DI.RAD.S_ITS ---
PROCEDURE: XR SHOULDER RT MIN 2V INDICATIONS: fall/direct impact TECHNIQUE: 3 views of the shoulder were acquired. COMPARISON: , CT, CT ANGIO CHEST, 08/05/2021, 9:21. [facility], CR, XR CHEST 2V, 11/13/2020, 11:55. FINDINGS: Bones: No fractures or dislocations. No suspicious bony lesions. Visualized ribs appear intact. Mild degenerative changes are seen. Soft tissues: No suspicious soft tissue calcifications. The visualized lung demonstrates an unremarkable appearance. IMPRESSION: No displaced fractures are seen on these plain films. If there is focal tenderness, or other clinical concern for a fracture not seen on these images in this patient with a given history of trauma, please consider a dedicated CT or a short-term followup plain film series (in 1-2 weeks) for further evaluation. Dictated by: Gabriel Barr M.D. on 09/20/2021 at 8:37 Approved by: Gabriel Barr M.D. on 09/20/2021 at 8:38
--- NOTE | 2021-09-20 09:32 | ED_ITS ---
HPI - Extremity Injury (Lower) General Chief Complaint: Extremity Injury, Lower Stated Complaint: Fell yesterday, cant raise right arm Time Seen by Provider: 09/20/21 09:17 Source: patient Mode of arrival: Ambulatory History of Present Illness HPI Narrative: 71-year-old male is here for evaluation of right shoulder discomfort. He states that yesterday he was walking down his sloped driveway when he slipped and fell. He landed on his buttocks with his arms in a straight position in his wrist extended. He did not hit his head. There was no loss of consciousness. He sustained injury to his right shoulder. Since that time he has had quite a bit of discomfort with raising his shoulder. He reports no hand pain no wrist pain no elbow pain no lower extremity discomfort. No left-sided discomfort. Related Data Home Medications Medication Instructions Recorded Confirmed doxazosin 1 mg tablet 1 mg PO BEDTIME 04/02/21 04/02/21 metoprolol tartrate 25 mg tablet 25 mg PO BID 04/02/21 04/02/21 Previous Rx's Medication Instructions Recorded acyclovir 200 mg capsule (Zovirax) 200 mg PO TIDP #180 cap 02/06/13 Allergies Allergy/AdvReac Type Severity Reaction Status Date / Time Penicillins Allergy Unknown Verified 07/20/21 14:08 Review of Systems Constitutional Constitutional: Denies headache(s) ENT Ears, Nose, Mouth, and Throat: Denies headache(s) Gastrointestinal Gastrointestinal: Reports system reviewed and no additional complaints, except as documented Musculoskeletal Musculoskeletal: Reports system reviewed and no additional complaints, except as documented and Reports as per HPI Integumentary/Breasts Skin/Breast: Reports system reviewed and no additional complaints, except as documented and Reports as per HPI Neurologic Neurologic: Denies headache(s) Hematologic/Lymphatic On Anticoagulants: No Allergic/Immunologic Allergic/Immunologic: Reports system reviewed and no additional complaints, except as documented Patient History Medical History Acute pain of left wrist Allergies (~1950) Asthma (~1950) BPH loc w urin obs/LUTS Chicken pox (~1955) Chronic cough Chronic kidney disease (CKD) stage G3a/A1, moderately decreased glomerular f iltration rate (GFR) between 45-59 mL/min/1.73 square meter and albuminuria creatinine ratio less than 30 mg/g Eczema (~2015) Fractures (~1965) Herpes (~1968) Hyperlipidemia Low back pain with sciatica Paroxysmal atrial fibrillation Plantar warts (~1976) Upper extremity somatic dysfunction Family History (Updated 04/01/21 @ 20:25 by Jennifer Cruz) Father Hypertension Hyperlipidemia Heart disease Stroke Mother Cancer Stroke Brother Mental health problem Social History Smoking Status: Never smoker alcohol intake: current substance use type: does not use Smoking Status: Never smoker alcohol intake frequency: 0-2 drinks per day Substance Use Type: does not use Exam Initial Vital Signs Initial Vital Signs: Vital Signs Temperature 97.7 F 09/20/21 09:10 Pulse Rate 56 L 09/20/21 09:10 Respiratory Rate 18 09/20/21 09:10 Blood Pressure 137/62 09/20/21 09:10 Pulse Oximetry 98 09/20/21 09:10 HENMT Head: normal to inspection and normocephalic Resp Effort & Inspection: normal respiratory effort Cardio Pulses: radial pulses present on the right Skin General: no rashes or lesions noted Neuro General: patient alert, patient awake and patient oriented x3 Sensory Exam: no sensory deficits noted Extrem Other: No paraspinal cervical tenderness. No cervical tenderness. No tenderness over the clavicle. No tenderness over the AC joint. No tenderness over the scapula. [place], cross-arm test negative. Negative drop can test. Does have tenderness over the biceps tendon. Does have tenderness with near test. His right elbow and right wrist are unremarkable. Course Orders Ordered: ED Orders 09/20/21 09:16 XR shoulder RT min 2V Stat Vital Signs Vital signs: Vital Signs - 8 hr 09/20/21 09:10 Temperature 97.7 F Pulse Rate 56 L Respiratory Rate 18 Blood Pressure 137/62 Pulse Oximetry 98 MDM - Extremity Injury (Lower) Imaging Data Extremity x-ray #1: Radiologist's Impression: [address] [address] XRay Report Signed Patient: Wei Cr MR#: [id number] : 1950 Acct:[id number] Age/Sex: 71 / M Date of Service: 09/20/21 Loc: ED Accession Number: [id number] ?? Procedure: XR shoulder RT min 2V Ordering Provider: Ray Vera D.O. PROCEDURE:? XR SHOULDER RT MIN 2V ? INDICATIONS:? fall/direct impact ? TECHNIQUE:? 3 views of the shoulder were acquired.? ? COMPARISON:? [facility], CT, CT ANGIO CHEST, 08/05/2021, 9:21.? [facility], CR, XR CHEST 2V, 11/13/2020, 11:55. ? FINDINGS:? ? Bones:? No fractures or dislocations.? No suspicious bony lesions.? Visualized ribs appear intact.? Mild degenerative changes are seen. ? Soft tissues:? No suspicious soft tissue calcifications.? The visualized lung demonstrates an unremarkable appearance. ? ? IMPRESSION:? ? No displaced fractures are seen on these plain films.? ? If there is focal tenderness, or other clinical concern for a fracture not seen on these images in this patient with a given history of trauma, please consider a dedicated CT or a short-term followup plain film series (in 1-2 weeks) for further evaluation.? ? ? Dictated by: Gabriel Barr M.D. on 09/20/2021 at 8:37 ? ? Approved by: Gabriel Barr M.D. on 09/20/2021 at 8:38? MDM Narrative Medical decision making narrative: Patient is neurovascularly intact. There are no fractures noted on the x-rays. No dislocations noted. I suspect a degree of soft tissue injury although I feel that a ligament/muscle tear is unlikely based on his presentation. I did discuss the use of anti-inflammatories and heat in ice and rest and staying active. He was given return precautions. He expressed understanding and agreement. Discharge Plan Departure Patient Disposition: Home Clinical Impression: Acute pain of right shoulder Instructions: How To Perform RICE (Rest, Ice, Compress, Elevate), DI for Shoulder Pain Activity Restrictions/Additional Instructions: There were no fractures noted on the x-rays. You are only limited in your activities by the discomfort that you are having. You can take Tylenol for any discomfort. Contact your primary doctor for a follow-up. Return to the emergency department for any new or worsening symptoms. Prescriptions: No Action acyclovir [Zovirax] 200 MG capsule 200 mg PO TIDP Qty: 180 0RF metoprolol tartrate 25 mg tablet 25 mg PO BID 0RF doxazosin 1 mg tablet 1 mg PO BEDTIME 0RF Referrals: Charles Dallas MD [Primary Care Provider] -
== END 2021-09-20 09:58 | disposition home or self-care (01) ==
PROVIDERS: Emergency Provider Emergency Medicine; PCP Family Medicine
DX: M25.511 Pain in right shoulder (principal); W10.2XXA Fall (on)(from) incline, initial encounter
CPT/HCPCS: 73030; 99283

== ENCOUNTER → 2021-11-13 13:12 | Outpatient (CLI) | payer OTHER, SELFPAY ==
--- NOTE | 2021-11-13 13:13 | DI.MRI.S_ITS ---
PROCEDURE: MR SHOULDER RT WO CON INDICATIONS: right shoulder pain and reduced ROM TECHNIQUE: Noncontrast oblique coronal T2 fast spin echo with fat saturation, oblique sagittal T1 spin echo and T2 fast spin echo with fat saturation, axial T1 spin echo and T2 fast spin echo with fat saturation through the shoulder. COMPARISON: [facility], CR, XR SHOULDER RT MIN 2V, 09/20/2021, 9:06. FINDINGS: Image quality: Excellent. Rotator cuff: There is full-thickness tearing of the entire supraspinatus tendon, roughly 15 mm proximal to the humeral insertion site, with medial retraction of the supraspinatus. Infraspinatus, subscapularis, and teres minor tendons are intact. Bones and bursae: No bone marrow contusions or fractures. Moderate acromioclavicular joint degeneration. The acromion demonstrates conventional anatomy, without an os acromiale. No pathologic subacromial-subdeltoid or subcoracoid bursal fluid is present. Capsule and soft tissues: Diffuse degenerative fraying of the glenoid labrum is present. The long head of the biceps tendon demonstrates normal location and morphology. The rotator interval appears normal, without fibrosis. The coracohumeral ligament is normal in thickness. IMPRESSION: 1. Full-thickness tearing of the supraspinatus. 2. Acromioclavicular joint osteoarthritis. 3. Diffuse degenerative tearing of the glenoid labrum. Dictated by: Sean Whitten M.D. on 11/13/2021 at 13:59 Transcribed by: LA on 11/13/2021 at 14:02 Approved by: Sean Whitten M.D. on 11/13/2021 at 16:57
== END ==
PROVIDERS: PCP Family Medicine; Referring Provider Family Medicine; Visit Provider Family Medicine
DX: S43.491A Other sprain of right shoulder joint, initial encounter (principal); M25.511 Pain in right shoulder; M19.011 Primary osteoarthritis, right shoulder; M75.121 Complete rotator cuff tear or rupture of right shoulder, not specified as traumatic; M25.60 Stiffness of unspecified joint, not elsewhere classified; I48.0 Paroxysmal atrial fibrillation
CPT/HCPCS: 73221

== ENCOUNTER → 2022-01-04 16:35 | Outpatient (CLI) | payer OTHER, SELFPAY ==
--- NOTE | 2022-01-04 16:38 | DI.MRI.S_ITS ---
PROCEDURE: MR LUMBAR SPINE WO CON INDICATIONS: eval RLE numbness/weakness/atrophy TECHNIQUE: Noncontrast sagittal T1 spin echo and T2 fast echo, sagittal STIR, and T2 fast spin echo through the lumbar spine. In cases with scoliosis, additional coronal T2 fast spin echo may be performed. COMPARISON: [facility], MR, L-SPINE WITHOUT CONTRAST, 09/04/2013, 18:03. FINDINGS: Image quality: This examination is limited by involuntary motion artifact. Alignment and Curvature: There is minimal grade 1 anterolisthesis at the L4-L5 level. Bone Marrow: Marrow is of normal overall signal. Scattered foci are seen, which are hyperintense on T1-weighted and T2-weighted imaging, which are most consistent with benign vertebral body hemangiomas. No acute vertebral body compression fractures. Spinal Cord: Conus medullaris terminates at the T12-L1 level. Visualized cord demonstrates normal signal and size. Paraspinous Soft Tissues: No paravertebral masses. There is an irregular T2 hyperintense lesion seen within the posterior medial spleen, which is stable compared to 2014 and thus regarded to be benign. T12-L1: Normal appearance. L1-L2: No significant abnormality is seen. L2-L3: The disc height and disc signal are relatively well preserved. Mild disc bulge is seen, which is eccentric to the left. There is moderate left-sided and mild right-sided neural foraminal narrowing. No significant central canal narrowing is seen. When comparison is made with the prior images, these findings are similar. L3-L4: The disc height is well-preserved. Loss of disc signal is seen at this level. Moderate generalized disc bulge is seen. Mild to moderate facet hypertrophy is seen. Moderate bilateral neural foraminal narrowing is seen. Moderate central canal narrowing is seen. Compared to 2014, these degenerative changes are similar. L4-L5: The disc height is well-preserved. Loss of disc signal is seen at this level. Moderate generalized disc bulge is seen. There is a mild central disc protrusion. At least moderate facet hypertrophy is seen at this level. There is moderate to severe bilateral neural foraminal narrowing seen, with an associated a degree of compression seen upon the exiting nerve roots. There is severe central canal narrowing is seen, as on series 5, image 5. These imaging findings have progressed compared to the prior study. L5-S1: The disc height is well-preserved. Loss of disc signal is seen at this level. Mild to moderate disc bulge is seen. Mild facet joint hypertrophy is seen. No significant neural foraminal or central canal narrowing can be seen. When comparison is made with the prior images, these findings are similar. IMPRESSION: Multiple levels of lumbar spine degenerative change are seen, which are progressed at L4-L5 compared to 2014. Otherwise, the degenerative changes appear similar. Incidental note is made of: Stable appearing splenic lesion Vertebral body hemangiomas, which are considered to be benign Dictated by: Gabriel Barr M.D. on 01/04/2022 at 17:18 Approved by: Gabriel Barr M.D. on 01/04/2022 at 17:22
== END ==
PROVIDERS: PCP Family Medicine; Referring Provider Family Medicine; Visit Provider Family Medicine
DX: M47.816 Spondylosis without myelopathy or radiculopathy, lumbar region (principal); M47.817 Spondylosis without myelopathy or radiculopathy, lumbosacral region; D73.9 Disease of spleen, unspecified; D18.09 Hemangioma of other sites; R20.0 Anesthesia of skin; M62.562 Muscle wasting and atrophy, not elsewhere classified, left lower leg; R29.898 Other symptoms and signs involving the musculoskeletal system
CPT/HCPCS: 72148

== ENCOUNTER → 2022-08-20 07:02 | Outpatient (CLI) | payer OTHER, SELFPAY ==
[2022-08-20 07:49] LABS: Add Manual Diff / Slide Review NO; Basophils Absolute Auto 100 /uL (0-100); Basophils Percent Auto 1.7 % (0-2); Eosinophils Absolute Auto 500 /uL (0-450); Eosinophils Percent Auto 8.4 % (2-4); Hemoglobin 13.6 g/dL (13.5-17.5); Lymphocytes Absolute Auto 2600 /uL (1100-4500); Lymphocytes Percent Auto 44.6 % (25-40); Mean Corpuscular HGB Conc 33.9 % (30-36); Mean Corpuscular Volume 91.2 fL (80-100); Monocytes Absolute Auto 500 /uL (0-900); Monocytes Percent Auto 9.2 % (3-14); Neutrophils Absolute Auto 2100 /uL (1500-7000); Neutrophils Percent Auto 36.1 % (50-75); Platelet Count 251 X10^3/uL (150-400); Red Blood Cell Count 4.38 X10^6/uL (4.5-5.9); Red Cell Distribution Width 13.5 % (11.6-14.8); White Blood Cell Count 5.7 X10^3/uL (4.5-11.0)
[2022-08-20 08:26] LABS: Alanine Aminotransferase 25 IU/L (<50); Albumin 3.6 g/dL (3.5-5.0); Albumin Globulin Ratio 1.3 (1.0-2.8); Alkaline Phosphatase 61 U/L (38-126); Aspartate Aminotransferase 29 IU/L (17-59); BUN Creatinine Ratio 17.1 (6-22); Bilirubin Total 1.2 mg/dL (0.2-1.3); Blood Urea Nitrogen 19 mg/dL (9-20); Calcium 8.9 mg/dL (8.4-10.2); Carbon Dioxide 31 mmol/L (22-32); Chloride 104 mmol/L (98-107); Cholesterol 185 mg/dL (140-199); Estimated Glomerular Filt Rate > 60 mL/min (>60); Globulin 2.8 g/dL (1.7-4.1); Glucose 97 mg/dL (80-110); HDL Cholesterol 66 mg/dL (40-60); HEMOLYSIS < 15 (0-50); LDL Cholesterol Calculated 109 mg/dL (<100); Potassium 4.6 mmol/L (3.4-5.1); Sodium 136 mmol/L (137-145); Total Protein 6.4 g/dL (6.3-8.2); Triglycerides 50 mg/dL (35-150)
[2022-08-20 08:54] LABS: Prostate Specific Antigen Scrn 0.972 ng/mL (0.1-4.0)
[2022-08-21 07:45] LABS: Labcorp Hemoglobin (Hb) A1c 5.7 % (4.8-5.6)
== END ==
PROVIDERS: PCP Family Medicine; Referring Provider Family Medicine; Visit Provider Family Medicine
DX: E78.5 Hyperlipidemia, unspecified (principal); I48.0 Paroxysmal atrial fibrillation; Z12.5 Encounter for screening for malignant neoplasm of prostate
CPT/HCPCS: 36415; 80053; 80061; 83036; 85025; G0103

== ENCOUNTER → 2023-12-01 07:01 | Outpatient (CLI) | payer OTHER, SELFPAY ==
[2023-12-01 08:08] LABS: Add Manual Diff / Slide Review NO; Basophils Absolute Auto 0 /uL (0-100); Basophils Percent Auto 0.8 % (0-2); Eosinophils Absolute Auto 500 /uL (0-450); Eosinophils Percent Auto 8.8 % (2-4); Hematocrit 41.3 % (41-53); Hemoglobin 13.9 g/dL (13.5-17.5); Lymphocytes Absolute Auto 2600 /uL (1100-4500); Lymphocytes Percent Auto 44.1 % (25-40); Mean Corpuscular HGB Conc 33.7 % (30-36); Mean Corpuscular Hemoglobin 31.2 PG (26-34); Mean Corpuscular Volume 92.7 fL (80-100); Monocytes Absolute Auto 500 /uL (0-900); Monocytes Percent Auto 9.2 % (3-14); Neutrophils Absolute Auto 2200 /uL (1500-7000); Neutrophils Percent Auto 37.1 % (50-75); Platelet Count 263 X10^3/uL (150-400); Red Blood Cell Count 4.45 X10^6/uL (4.5-5.9); Red Cell Distribution Width 13.2 % (11.6-14.8); White Blood Cell Count 5.9 X10^3/uL (4.5-11.0)
[2023-12-01 08:25] LABS: Alanine Aminotransferase 21 IU/L (<50); Albumin 3.9 g/dL (3.5-5.0); Albumin Globulin Ratio 1.4 (1.0-2.8); Alkaline Phosphatase 59 U/L (38-126); Aspartate Aminotransferase 27 IU/L (17-59); BUN Creatinine Ratio 19.2 (6-22); Bilirubin Total 0.9 mg/dL (0.2-1.3); Blood Urea Nitrogen 23 mg/dL (9-20); Calcium 8.9 mg/dL (8.4-10.2); Carbon Dioxide 29 mmol/L (22-32); Chloride 107 mmol/L (98-107); Estimated Glomerular Filt Rate > 60 mL/min (>60); Globulin 2.8 g/dL (1.7-4.1); Glucose 109 mg/dL (80-110); HEMOLYSIS < 15 (0-50); Potassium 4.3 mmol/L (3.4-5.1); Sodium 139 mmol/L (137-145); Total Protein 6.7 g/dL (6.3-8.2)
[2023-12-01 09:13] LABS: Vitamin B12 285 pg/mL (239-931)
[2023-12-02 03:37] LABS: Hemoglobin A1C% w Est Avg Glu 5.5 % (4.0-6.0)
== END ==
PROVIDERS: PCP Family Medicine; Referring Provider Physician Assistant; Visit Provider Physician Assistant
DX: R41.3 Other amnesia (principal); R73.09 Other abnormal glucose; I48.0 Paroxysmal atrial fibrillation
CPT/HCPCS: 36415; 80053; 82607; 83036; 84443; 85025

== ENCOUNTER → 2023-12-08 12:03 | Outpatient (CLI) | payer OTHER, SELFPAY ==
--- NOTE | 2023-12-08 12:04 | DI.CT.S_ITS ---
PROCEDURE: CT HEAD/BRAIN WO CON INDICATIONS: Memory Concerns TECHNIQUE: Noncontrast 4.5 mm thick angled axial sections acquired from the foramen magnum to the vertex, with coronal and sagittal reformats. For radiation dose reduction, the following was used: automated exposure control, adjustment of mA and/or kV according to patient size. COMPARISON: None. FINDINGS: Image quality: Diagnostic. CSF spaces: Basal cisterns are patent. No extra-axial fluid collections. The ventricles are symmetric in size and shape. Brain: No intracranial bleeds or masses. There is cerebral volume loss for age, with resultant ventricular and sulcal prominence. There are periventricular and deep white matter chronic small vessel ischemic changes. There is intracranial internal carotid artery atherosclerosis. Skull and face: Calvarium and visualized facial bones appear intact, without suspicious lesions. Sinuses: Visualized sinuses and mastoids are clear. IMPRESSION: Mild age-related global volume loss and chronic microvascular ischemic changes. No acute intracranial pathology. Dictated by: Simba Rai M.D. on 12/08/2023 at 14:18 Approved by: Simba Rai M.D. on 12/08/2023 at 14:19
== END ==
PROVIDERS: PCP Family Medicine; Referring Provider Physician Assistant; Visit Provider Physician Assistant
DX: R41.3 Other amnesia (principal); I48.0 Paroxysmal atrial fibrillation; I65.29 Occlusion and stenosis of unspecified carotid artery
CPT/HCPCS: 70450

== ENCOUNTER → 2024-02-09 09:17 | Outpatient (CLI) | payer OTHER, SELFPAY ==
[2024-02-09 11:11] LABS: Alanine Aminotransferase 26 IU/L (<50); Albumin 4.1 g/dL (3.5-5.0); Albumin Globulin Ratio 1.6 (1.0-2.8); Alkaline Phosphatase 56 U/L (38-126); Aspartate Aminotransferase 29 IU/L (17-59); BUN Creatinine Ratio 18.6 (6-22); Bilirubin Total 0.8 mg/dL (0.2-1.3); Blood Urea Nitrogen 22 mg/dL (9-20); Calcium 9.5 mg/dL (8.4-10.2); Carbon Dioxide 28 mmol/L (22-32); Chloride 103 mmol/L (98-107); Cholesterol 184 mg/dL (140-199); Estimated Glomerular Filt Rate > 60 mL/min (>60); Globulin 2.6 g/dL (1.7-4.1); Glucose 73 mg/dL (80-110); HDL Cholesterol 65 mg/dL (40-60); HEMOLYSIS < 15 (0-50); LDL Cholesterol Calculated 98 mg/dL (<100); Potassium 4.8 mmol/L (3.4-5.1); Sodium 138 mmol/L (137-145); Total Protein 6.7 g/dL (6.3-8.2); Triglycerides 106 mg/dL (35-150)
[2024-02-09 11:44] LABS: Prostate Specific Antigen Scrn 1.05 ng/mL (0.1-4.0)
[2024-02-10 07:11] LABS: Apolipoprotein B 77 mg/dL (<90)
== END ==
PROVIDERS: PCP Family Medicine; Referring Provider Family Medicine; Visit Provider Family Medicine
DX: E78.2 Mixed hyperlipidemia (principal); Z12.5 Encounter for screening for malignant neoplasm of prostate; I48.0 Paroxysmal atrial fibrillation; R73.09 Other abnormal glucose
CPT/HCPCS: 36415; 80053; 80061; 82172; G0103

== ENCOUNTER → 2024-02-20 07:18 | Outpatient (CLI) | payer OTHER, SELFPAY ==
--- NOTE | 2024-02-20 07:18 | DI.US.S_ITS ---
PROCEDURE: US CAROTID DOPPLER BI INDICATIONS: Carotid stenosis TECHNIQUE: Color and pulse Doppler interrogation was performed of both carotid systems, with image documentation and velocity measurements. COMPARISON: [facility], CT, CT HEAD/BRAIN WO CON, 12/08/2023, 12:52. FINDINGS: Stenosis calculations are based on SRU (Society of Radiologists in Ultrasound) criteria. The flow velocities and the arterial waveforms are normal within both carotid arterial systems. Mild atherosclerotic plaque is seen on both sides. The estimated degree of internal carotid artery stenosis is less than 50%. Antegrade flow is confirmed within both vertebral arteries. IMPRESSION: No hemodynamically significant stenosis is seen. Dictated by: Gabriel Barr M.D. on 02/20/2024 at 9:40 Approved by: Gabriel Barr M.D. on 02/20/2024 at 9:41
== END ==
PROVIDERS: PCP Family Medicine; Referring Provider Family Medicine; Visit Provider Family Medicine
DX: I65.29 Occlusion and stenosis of unspecified carotid artery (principal)
CPT/HCPCS: 93880

== ENCOUNTER 2024-03-21 03:29 | Emergency (ER) | payer OTHER, SELFPAY ==
[2024-03-21] VITALS (11 sets, daily range): BP systolic 111–190; BP diastolic 69–92; PULSE 45–57; RESP 17–18; TEMP 36.1; O2SAT 96–100; BMI 22.2
--- NOTE | 2024-03-21 03:32 | DI.CT.S_ITS ---
PROCEDURE: CT ANGIO HEAD AND NECK INDICATIONS: Headache with vision loss left eye TECHNIQUE: After the administration of intravenous contrast, 1 mm thick sections acquired from the aortic arch through the [place] of Gabriel. 3-dimensional ihqwide-lirhflefz-fkykywtlyg (MIP) and/or volume rendering reformats were acquired of the central intracranial vasculature and neck separately. For radiation dose reduction, the following was used: automated exposure control, adjustment of mA and/or kV according to patient size. COMPARISON: [facility], , CAROTID DOPPLER BI, 02/20/2024, 7:34. FINDINGS: Image quality: Diagnostic. BRAIN: CSF spaces: Ventricles are normal in size and shape. Basal cisterns are patent. No extra-axial fluid collections. Brain: No significant abnormality of the brain can be seen. Skull and face: Calvarium and facial bones appear intact, without suspicious lesions. Orbits appear normal. Sinuses: Sinuses and mastoids are clear. HEAD CT ANGIOGRAPHY: Anterior circulation: Intracranial internal carotid arteries are normal in size and flow. The flow within the paired anterior cerebral arteries is normal and symmetric. The flow within the middle cerebral arteries is normal and symmetric. The anterior communicating artery is seen. No aneurysms are seen. Posterior circulation: Visualized portions of the vertebral arteries demonstrate normal caliber, and join to form a normal appearing basilar artery. Flow within the posterior cerebral arteries is normal and symmetric. No aneurysms are seen. NECK CT ANGIOGRAPHY: Carotid system: The great vessels demonstrate a conventional anatomy as they arise from the aortic arch. The origins of the common carotid arteries appear patent. The common carotid arteries demonstrate normal caliber and courses. The bifurcation regions are both widely patent. The internal carotid arteries demonstrate normal calibers and courses. Posterior circulation: The origins of the vertebral arteries both appear widely patent. The more superior extracranial portions of both vertebral arteries also demonstrate normal courses and calibers. They join to form a normal appearing basilar artery. Soft tissues: Visualized neck soft tissues demonstrate no suspicious abnormalities. Bones: No suspicious bony lesions. Visualized cervical spine appears normally aligned. IMPRESSION: No significant intracranial arterial abnormality is seen. No significant abnormality is seen within the arteries of the neck. No discrepancies from preliminary reading. Any quantitative measurements of stenosis were performed using NASCET criteria. Dictated by: Otto Whitney M.D. on 03/21/2024 at 9:35 Approved by: Otto Whitney M.D. on 03/21/2024 at 9:36
--- NOTE | 2024-03-21 03:32 | DI.CT.S_ITS ---
PROCEDURE: CT HEAD/BRAIN WO CON INDICATIONS: Headache with vision loss TECHNIQUE: Noncontrast 4.5 mm thick angled axial sections acquired from the foramen magnum to the vertex, with coronal and sagittal reformats. For radiation dose reduction, the following was used: automated exposure control, adjustment of mA and/or kV according to patient size. COMPARISON: [facility], CT, CT HEAD/BRAIN WO CON, 12/08/2023, 12:52. FINDINGS: Image quality: Diagnostic. CSF spaces: Basal cisterns are patent. No extra-axial fluid collections. The ventricles are symmetric in size and shape. Brain: No intracranial bleeds or masses. There is cerebral volume loss for age, with resultant ventricular and sulcal prominence. There are periventricular and deep white matter chronic small vessel ischemic changes. There is intracranial internal carotid artery atherosclerosis. Skull and face: Calvarium and visualized facial bones appear intact, without suspicious lesions. Sinuses: Visualized sinuses and mastoids are clear. IMPRESSION: No acute intracranial pathology. No discrepancies from preliminary reading. Dictated by: Otto Whitney M.D. on 03/21/2024 at 9:11 Approved by: Otto Whitney M.D. on 03/21/2024 at 9:31
--- NOTE | 2024-03-21 03:40 | PC.NURSE ---
pt c/o halo around the lights seen by his right eye, pt denies any other problems, moves all extremities without any problems face symmetrical, speech clear, pt has had lasix in the past in both eyes
[2024-03-21 03:53] LABS: Add Manual Diff / Slide Review NO; Basophils Absolute Auto 100 /uL (0-100); Basophils Percent Auto 1.3 % (0-2); Eosinophils Absolute Auto 300 /uL (0-450); Hematocrit 42.5 % (41-53); Hemoglobin 14.3 g/dL (13.5-17.5); Lymphocytes Absolute Auto 3500 /uL (1100-4500); Lymphocytes Percent Auto 45.4 % (25-40); Mean Corpuscular HGB Conc 33.6 % (30-36); Mean Corpuscular Hemoglobin 31.3 PG (26-34); Monocytes Absolute Auto 900 /uL (0-900); Monocytes Percent Auto 11.2 % (3-14); Neutrophils Absolute Auto 3000 /uL (1500-7000); Neutrophils Percent Auto 38.1 % (50-75); Platelet Count 255 X10^3/uL (150-400); Red Blood Cell Count 4.56 X10^6/uL (4.5-5.9); Red Cell Distribution Width 13.1 % (11.6-14.8); White Blood Cell Count 7.8 X10^3/uL (4.5-11.0)
[2024-03-21] MEDS: PROPARACAINE 0.5% OPHTH SOL 1 DROPS EYE-RIGHT (03:57)
[2024-03-21 03:58] LABS: Prothrombin Time 11.6 SECONDS (9.4-12.5)
[2024-03-21 04:00] LABS: PTT Partial Thromboplastin Tim 41 SECONDS (25.1-36.5)
[2024-03-21 04:02] LABS: Alanine Aminotransferase 27 IU/L (<50); Albumin 4.1 g/dL (3.5-5.0); Albumin Globulin Ratio 1.5 (1.0-2.8); Alkaline Phosphatase 57 U/L (38-126); Aspartate Aminotransferase 37 IU/L (17-59); BUN Creatinine Ratio 18.1 (6-22); Bilirubin Total 0.9 mg/dL (0.2-1.3); Blood Urea Nitrogen 21 mg/dL (9-20); Calcium 9.2 mg/dL (8.4-10.2); Carbon Dioxide 28 mmol/L (22-32); Chloride 104 mmol/L (98-107); Estimated Glomerular Filt Rate > 60 mL/min (>60); Globulin 2.7 g/dL (1.7-4.1); Glucose 97 mg/dL (80-110); HEMOLYSIS < 15 (0-50); Lipase 92 U/L (23-300); Potassium 4.2 mmol/L (3.4-5.1); Sodium 137 mmol/L (137-145); Total Protein 6.8 g/dL (6.3-8.2)
[2024-03-21 04:06] LABS: C-Reactive Protein Quant < 0.5 mg/dL (<1.0)
[2024-03-21 04:15] LABS: Erythrocyte Sedimentation Rate 5 MM/HR (0-15)
--- NOTE | 2024-03-21 04:38 | ED_ITS ---
HPI - General Adult General Chief complaint: Eye Problems Stated complaint: vision loss in rt eye, headache Time Seen by Provider: 03/21/24 03:31 Source: patient Mode of arrival: Ambulatory History of Present Illness HPI narrative: Patient is a 73-year-old male. Not on anticoagulation. Has a history of paroxysmal atrial fibrillation status post ablation. No prior history of coronary artery disease. No prior history of CVA. Has had LASIK in the past to both of his eyes. He states that his left eye is for close up reading in his right eye as for distance vision. He does not wear corrective lenses although has wear contact lenses in the past. No history of glaucoma. No history of migraine headaches. States he went to bed last night at about 930 feeling normal. Woke up at about 0100 hours in the morning to go use the restroom. He states when he turned on the light in the bathroom he noticed that there was a ?dim? vision in his right eye. He states that he still can see out of his right eye it just seems like that the light is D-dimer on this side. He also has somewhat blurry vision on the right side. Since arrival here in the emergency department he was also developed a right-sided headache. No left eye vision changes. No sore throat or sinus congestion or fevers. No upper lower extremity neurologic symptoms. No chest pain, palpitations or shortness of breath or skin changes. Has not tried anything for symptoms prior to arrival. He also states that he was seeing ?halos? around lights in his right eye. Related Data Home Medications Medication Instructions Recorded Confirmed aspirin 81 mg chewable tablet 81 mg PO DAILY 08/19/22 02/09/24 Previous Rx's Medication Instructions Recorded donepezil 5 mg tablet 5 mg PO BEDTIME #90 tabs 02/09/24 memantine 5 mg tablet 5 mg PO QPM #90 tabs 02/09/24 rosuvastatin 10 mg tablet 10 mg PO DAILY #90 tabs 02/09/24 acyclovir 200 mg capsule 200 mg PO DAILY #90 caps 02/21/24 doxazosin 4 mg tablet 4 mg PO ONCE PM #90 tabs 03/12/24 Allergies Allergy/AdvReac Type Severity Reaction Status Date / Time Penicillins AdvReac Unknown Chills Verified 02/09/24 08:17 Review of Systems Review of Systems ROS Unobtainable: All systems reviewed & are unremarkable except as noted in HPI and below Patient History Medical History Carotid artery stenosis Mild neurodegenerative dementia Paroxysmal atrial fibrillation Plantar warts (~1976) Eczema (~2015) Asthma (~1950) Fractures (~1965) Chicken pox (~1955) Hyperlipidemia Low back pain with sciatica Upper extremity somatic dysfunction Acute pain of left wrist Allergies (~1950) Herpes (~1968) BPH loc w urin obs/LUTS Chronic cough Family History (Updated 04/01/21 @ 20:25 by Jennifer Cruz) Father Hypertension Hyperlipidemia Heart disease Stroke Mother Cancer Stroke Brother Mental health problem Social History Smoking Status: Never smoker alcohol intake: current substance use type: does not use Smoking Status: Never smoker alcohol intake frequency: 0-2 drinks per day Substance Use Type: does not use and marijuana Exam Initial Vital Signs Initial Vital Signs: Vital Signs Pulse Rate 57 L 03/21/24 03:33 Pulse Oximetry 97 03/21/24 03:33 Const General: cooperative and healthy appearing HENMT Head: normal to inspection and normocephalic Ears: TM's normal bilaterally Face and sinus: normal facial exam Mouth: oral mucosae normal HENMT Other: No tenderness to palpation over the temporal arteries Eyes Periorbital: periorbital findings normal Other: Visual acuity right eye 20 30 which is his distant vision. Visual acuity left eye 20 50 which is his near vision Intra-ocular pressure right eye 43. Repeat interocular pressure 28-[id number]-[id number] pressure left eye 12 Extraocular muscles intact Left eye pupil equal round and reactive Right eye pupil minimally reactive fixed at approximately 4 mm Minimal redness to the right eye. No redness to the left eye Some corneal cloudiness to the right eye. Left eye corneal unremarkable Visual donnelly unremarkable Resp Effort & Inspection: normal respiratory effort Auscultation: clear to auscultation bilaterally Cardio Rate: regular rate Rhythm: regular rhythm GI Inspection: normal to inspection and non-distended Skin General: no rashes or lesions noted Neuro General: patient alert, patient awake, patient oriented x3 and moves all extremities Cognition: normal cognition Speech: speech normal Sensory Exam: no sensory deficits noted Other: Cranial nerves intact Extrem General: normal to inspection Scores GCS [place] coma scale eye opening: Spontaneous Kay coma scale verbal response: Orientated Kay coma scale motor response: Obey commands [place] coma scale total score: 15 Course Orders Ordered: ED Orders 03/21/24 03:32 CT angio head and neck Stat CT head/brain wo con Stat 03/21/24 03:44 CRP [C-Reactive Protein Quant] Stat Complete Blood Count AUTO DIFF Stat Comprehensive Metabolic Panel Stat ESR [Erythrocyte Sedimentation Rate] Stat Lipase Stat PTT Partial Thromboplastin Aayush Stat Prothrombin Time INR Stat Brimonidine Tartrate (Brimonidine 0.2% Ophth 5 Ml) 1 drops EYE-RIGHT Q15MIN [facility] Last Admin: 03/21/24 06:45 Dose: 1 drops Dorzolamide HCl (Dorzolamide 2% Ophth 10 Ml) 1 drops EYE-RIGHT Q15MIN [facility] Last Admin: 03/21/24 06:47 Dose: 1 drops Latanoprost (Latanoprost 0.005% Ophth 2.5 Ml) 1 drops EYE-RIGHT Q15MIN [facility] Last Admin: 03/21/24 06:45 Dose: 1 drops Discontinued Medications Acetazolamide (Acetazolamide 250 Mg Tablet) 500 mg PO NOW ONE Stop: 03/21/24 04:43 Last Admin: 03/21/24 05:06 Dose: 500 mg Documented By: NENA Pilocarpine HCl (Pilocarpine 2% Ophth Drops 15 Ml) 1 drops EYE-RIGHT Q30MIN [facility] Stop: 03/24/24 04:46 Last Admin: 03/21/24 05:44 Dose: 1 drops Documented By: Admin: 03/21/24 05:30 Dose: 1 drops Documented By: Admin: 03/21/24 05:15 Dose: 1 drops Documented By: NENA Proparacaine HCl (Proparacaine 0.5% Ophth [place]) 1 drops EYE-RIGHT NOW ONE Stop: 03/21/24 03:37 Last Admin: 03/21/24 03:57 Dose: 1 drop Documented By: BOGDAN Timolol Maleate (Timolol 0.5% Ophth) 1 drops EYE-RIGHT Q30MIN [facility] Last Admin: 03/21/24 05:34 Dose: 1 drop Documented By: Admin: 03/21/24 05:05 Dose: 1 drop Documented By: NENA Vital Signs Vital signs: Vital Signs - 8 hr 03/21/24 03:33 03/21/24 03:34 03/21/24 03:34 Temperature Pulse Rate 57 L 49 L Respiratory Rate Blood Pressure 190/92 H Pulse Oximetry 97 99 Oxygen Delivery Method 03/21/24 03:36 03/21/24 03:36 03/21/24 03:37 Temperature 96.9 F L Pulse Rate 47 L 50 L Respiratory Rate 17 Blood Pressure 158/81 H 158/81 H Pulse Oximetry 99 99 Oxygen Delivery Method Room Air 03/21/24 04:00 03/21/24 04:00 03/21/24 04:18 Temperature Pulse Rate 49 L 49 L Respiratory Rate Blood Pressure 144/82 H Pulse Oximetry 97 98 Oxygen Delivery Method 03/21/24 04:18 03/21/24 04:30 03/21/24 04:31 Temperature Pulse Rate 49 L 50 L Respiratory Rate Blood Pressure 156/79 H Pulse Oximetry 99 100 Oxygen Delivery Method 03/21/24 04:31 03/21/24 05:00 03/21/24 05:01 Temperature Pulse Rate 55 L 54 L Respiratory Rate Blood Pressure 182/89 H Pulse Oximetry 98 97 Oxygen Delivery Method 03/21/24 05:01 Temperature Pulse Rate Respiratory Rate 18 Blood Pressure 147/84 H Pulse Oximetry Oxygen Delivery Method Medical Decision Making Medical Records Medical records reviewed: Yes I reviewed the patient's medical records. Lab Data Lab results reviewed: Yes I reviewed the patient's lab results. 03/21/24 03:44 03/21/24 03:44 Labs: Lab Results 03/21/24 Range/Units 03:44 WBC 7.8 (4.5-11.0) X10^3/uL RBC 4.56 (4.5-5.9) X10^6/uL Hgb 14.3 (13.5-17.5) g/dL Hct 42.5 (41-53) % MCV 93.0 (80-100) fL MCH 31.3 (26-34) PG MCHC 33.6 (30-36) % RDW 13.1 (11.6-14.8) % Plt Count 255 (150-400) X10^3/uL Neut % (Auto) 38.1 L (50-75) % Lymph % (Auto) 45.4 H (25-40) % [place] % (Auto) 11.2 (3-14) % Eos % (Auto) 4.0 (2-4) % Baso % (Auto) 1.3 (0-2) % Neut # (Auto) 3000 (6889-1808) /uL Lymph # (Auto) 3500 (1185-8476) /uL [place] # (Auto) 900 (0-900) /uL Eos # (Auto) 300 (0-450) /uL Baso # (Auto) 100 (0-100) /uL ESR 5 (0-15) MM/HR PT 11.6 (9.4-12.5) SECONDS INR 1.0 (0.9-1.3) APTT 41 H (25.1-36.5) SECONDS Sodium 137 (137-145) mmol/L Potassium 4.2 (3.4-5.1) mmol/L Chloride 104 (98-107) mmol/L Carbon Dioxide 28 (22-32) mmol/L BUN 21 H (9-20) mg/dL Creatinine 1.16 (0.66-1.25) mg/dL Estimated GFR > 60 (>60) mL/min BUN/Creatinine Ratio 18.1 (6-22) Glucose 97 (80-110) mg/dL Calcium 9.2 (8.4-10.2) mg/dL Total Bilirubin 0.9 (0.2-1.3) mg/dL AST 37 (17-59) IU/L ALT 27 (<50) IU/L Alkaline Phosphatase 57 (38-126) U/L C-Reactive Protein < 0.5 (<1.0) mg/dL Total Protein 6.8 (6.3-8.2) g/dL Albumin 4.1 (3.5-5.0) g/dL Globulin 2.7 (1.7-4.1) g/dL Albumin/Globulin Ratio 1.5 (1.0-2.8) Lipase 92 (23-300) U/L Imaging Data CT scan - head: Radiologist's Impression: No acute intracranial findings CTA - brain/neck: Radiologist's Impression: No evidence of significant stenosis, aneurysm or AVM [facility] Narrative Medical decision making narrative: History and physical exam is consistent an acute angle closure glaucoma. Intra- ocular pressure in the right eye initially was 43 and then immediate repeat was 48. Visual acuity is unremarkable. The rest of his exam is consistent with a glaucoma as well. CT scan is unremarkable. There was no signs of infection. No trauma. Was given 500 mg of acetazolamide by mouth at approximately 0500 hours. He was then given pilocarpine and timolol drops as well. I discussed the case with Dr. Nails on-call with Ophthalmology at [facility] who recommended stopping the pilocarpine and timolol. Recommended administering Brimonidine, Dorzolamide and latanoprost Q15 minutes x3 doses. Patient has been accepted by Dr. Nails in transfer for evaluation. Discussed the need for transfer with the patient who expressed understanding and agreement with the plan. Critical Care Time Critical Care Time Critical Care Time: Yes Total Critical Care Time: 35 Attestation: The high probability of a clinically significant, sudden or life threatening deterioration of the [visual] system(s) required my full and direct attention, intervention and personal management. The aggregate critical care time was [35] minutes. This time is in addition to time spent performing reported procedures but includes the following: [x] Data Review and interpretation [x] Patient assessment and monitoring of vital signs [x] Documentation [x] Medication orders and management Discharge Plan Departure Patient Disposition: [facility] Clinical Impression: Acute glaucoma of right eye Prescriptions: No Action acyclovir 200 mg capsule 200 mg PO DAILY Qty: 90 3RF doxazosin 4 mg tablet 4 mg PO ONCE PM Qty: 90 3RF aspirin 81 mg tablet,chewable 81 mg PO DAILY rosuvastatin 10 mg tablet 10 mg PO DAILY Qty: 90 3RF donepezil 5 mg tablet 5 mg PO BEDTIME Qty: 90 3RF memantine 5 mg tablet 5 mg PO QPM Qty: 90 3RF Referrals: Charles Dallas MD [Primary Care Provider] -
[2024-03-21] MEDS: TIMOLOL 0.5% OPHTH 1 DROPS EYE-RIGHT ×2 (05:05→05:34)
[2024-03-21] MEDS: acetaZOLAMIDE 250 MG TABLET 500 MG PO (05:06)
[2024-03-21] MEDS: PILOCARPINE 2% OPHTH DROPS 15 ML 1 DROPS EYE-RIGHT ×3 (05:15→05:44)
--- NOTE | 2024-03-21 05:38 | PC.NURSE ---
drops administered as ordered pt tolerating well, pupil continues dilated
[2024-03-21] MEDS: DORZOLAMIDE 2% OPHTH 10 ML 1 DROPS EYE-RIGHT ×3 (06:15→06:47)
[2024-03-21] MEDS: LATANOPROST 0.005% OPHTH 2.5 ML 1 DROPS EYE-RIGHT ×3 (06:15→06:45)
[2024-03-21] MEDS: BRIMONIDINE 0.2% OPHTH 5 ML 1 DROPS EYE-RIGHT ×3 (06:15→06:45)
== END 2024-03-21 08:13 | disposition short-term general hospital (02) ==
PROVIDERS: Emergency Provider Emergency Medicine; PCP Family Medicine
DX: H40.9 Unspecified glaucoma (principal); R51.9 Headache, unspecified; R40.2412 Glasgow coma scale score 13-15, at arrival to emergency department
CPT/HCPCS: 36415; 70450; 70496; 70498; 80053; 83690; 85025; 85610; 85651; 85730; 86140; 99284; 99291; Q9967

== ENCOUNTER → 2025-04-02 06:49 | Outpatient (CLI) | payer OTHER, SELFPAY ==
[2025-04-02 08:07] LABS: Add Manual Diff / Slide Review NO; Hematocrit 44.0 % (41-53); Hemoglobin 14.9 g/dL (13.5-17.5); Lymphocytes Absolute Auto 2900 /uL (1100-4500); Mean Corpuscular HGB Conc 33.9 % (30-36); Mean Corpuscular Hemoglobin 31.5 PG (26-34); Mean Corpuscular Volume 93.1 fL (80-100); Platelet Count 241 X10^3/uL (150-400)
[2025-04-02 08:22] LABS: Alanine Aminotransferase 23 IU/L (<50); Albumin 4.3 g/dL (3.5-5.0); Albumin Globulin Ratio 1.5 (1.0-2.8); Alkaline Phosphatase 58 U/L (38-126); Blood Urea Nitrogen 21 mg/dL (9-20); Calcium 9.5 mg/dL (8.4-10.2); Carbon Dioxide 28 mmol/L (22-32); Chloride 102 mmol/L (98-107); Cholesterol 150 mg/dL (140-199); Estimated Glomerular Filt Rate 60 mL/min (>60); Globulin 2.8 g/dL (1.7-4.1); Glucose 99 mg/dL (70-99); HDL Cholesterol 62 mg/dL (40-60); HEMOLYSIS < 15 (0-50); Potassium 5.1 mmol/L (3.4-5.1); Sodium 139 mmol/L (137-145); Total Protein 7.1 g/dL (6.3-8.2); Triglycerides 70 mg/dL (35-150)
[2025-04-02 08:53] LABS: TSH w/ Reflex to FT4 3.41 uIU/mL (0.47-4.68)
== END ==
PROVIDERS: PCP Family Medicine; Referring Provider Family Medicine; Visit Provider Family Medicine
DX: Z12.5 Encounter for screening for malignant neoplasm of prostate (principal); F03.A0 Unspecified dementia, mild, without behavioral disturbance, psychotic disturbance, mood disturbance, and anxiety; E78.2 Mixed hyperlipidemia; R41.3 Other amnesia
CPT/HCPCS: 36415; 80053; 80061; 82043; 82570; 84443; 85025; G0103